=== PATIENT | female | born 1990 | race Caucasian/White ===

== ENCOUNTER 2019-09-16 19:51 | Emergency (ER) | payer OTHER ==
[~2019-09-16] VITALS: Ht 157.5 cm; Wt 97.7 kg
[~2019-09-16 19:51] MED LIST: CEPHALEXIN500 M1 PO; NO HOME MEDICATIONS; PRENATAL1 TA2 PO; ZOFRAN 4MG T4 MG/TAB PO
[2019-09-16 20:05] VITALS: BP 145/96; TEMP 98.1
[2019-09-16] MEDS ORDERED: VTAMINC250TA (20:18)
[2019-09-16] MEDS ORDERED: PROFE180 MG PO (20:18)
[2019-09-16] MEDS ORDERED: MULTI VITAMINS1 TAB PO (20:19)
[2019-09-16 21:35] VITALS: PULSE 87
== END 2019-09-16 21:35 | disposition home or self-care (01) ==
LOC: COL.ER 19:51
DX: R20.2 Paresthesia of skin (principal); D64.9 Anemia, unspecified